=== PATIENT | male | born 1995 | race Caucasian/White ===

== ENCOUNTER 2022-10-13 10:34 | Emergency (ER) | payer MEDICAID ==
[~2022-10-13] VITALS: Ht 175.3 cm; Wt 70.3 kg
[2022-10-13 10:49] VITALS: BP 144/88; PULSE 70; RESP 17; TEMP 97.4; O2SAT 99
--- NOTE | 2022-10-13 11:01 | NUR ---
Pt bibs for n/v x 6 days. Pt has hx of n/v from chronic marijuana use. Pt states he stopped using marijuana 6 days ago for health concerns and has been nauseated ever since. Has 6 episodes of vomiting today. Pt is a/o x 4, vss, no ss of acute distress, breathing equal and unlabored, speech clear.
[2022-10-13] MEDS ORDERED: NACL 0.9% 1,000 ML IV ONE (11:05)
[2022-10-13] MEDS ORDERED: diphenhydrAMINE 50 MG/ML VIAL IVP ONE (11:05)
[2022-10-13] MEDS ORDERED: HALOPERIDOL IM 5 MG/ML VIAL IM ONE (11:05)
[2022-10-13 11:22] LABS: BASOPHILS # (AUTO) 0.1 K/uL (0.00-0.22); BASOPHILS % (AUTO) 0.5 % (0.0-2.0); EOSINOPHILS # (AUTO) 0.1 K/uL (0-0.4); EOSINOPHILS % (AUTO) 0.6 % (0.0-4.0); HEMATOCRIT 49.1 % (36-52); LYMPHOCYTES # (AUTO) 1.9 K/uL (2.0-11.5); LYMPHOCYTES % (AUTO) 17.9 % (20.5-51.1); MEAN CORPUSCULAR HEMOGLOBIN 31 pg (27-31); MEAN CORPUSCULAR HGB CONC 35 g/dL (33-37); MEAN CORPUSCULAR VOLUME 89.4 fL (80-94); MONOCYTES # (AUTO) 0.8 K/uL (0.8-1.0); MONOCYTES % (AUTO) 7.2 % (1.7-9.3); NEUTROPHILS # (AUTO) 7.9 K/uL (1.8-7.7); NEUTROPHILS % (AUTO) 73.8 % (42.2-75.2); PLATELET COUNT (AUTO) 244 K/uL (140-450); RED BLOOD CELL COUNT(AUTO) 5.49 MIL/uL (4.20-6.10); WHITE BLOOD COUNT (AUTO) 10.7 K/uL (4.8-10.8)
[2022-10-13 11:49] LABS: ALBUMIN 4.8 g/dL (3.4-5.0); ANION GAP 14.4 (8-16); CARBON DIOXIDE 26.4 mmol/L (21-32); CREATININE 0.8 mg/dL (0.6-1.3); POTASSIUM 3.8 mmol/L (3.5-5.1); TOTAL BILIRUBIN 2.1 mg/dL (0.0-1.0)
[2022-10-13] MEDS ORDERED: ONDA-188 SL (12:03)
[2022-10-13] MEDS ORDERED: CAPS42.514 TP (12:03)
[2022-10-13 12:13] VITALS: BP 128/79; PULSE 80; RESP 14; O2SAT 98
--- NOTE | 2022-10-13 12:14 | NUR ---
Patient discharged with v/s stable. Written and verbal after care instructions given and explained. Patient alert, oriented and verbalized understanding of instructions. Ambulatory with steady gait. All questions addressed prior to discharge. ID band removed. Patient advised to follow up with PMD. Rx reviewed with pt. Patient educated on indication of medication including possible reaction and side effects. Opportunity to ask questions provided and answered.
== END 2022-10-13 12:13 | disposition home or self-care (01) ==
LOC: MED 10:34
DX: R11.2 Nausea with vomiting, unspecified (principal); F12.90 Cannabis use, unspecified, uncomplicated; Z71.6 Tobacco abuse counseling; Z79.899 Other long term (current) drug therapy
CPT/HCPCS: 36415; 80053; 83690; 85025; 96361; 96372; 96374; 99284; J1200; J1630; J7030